=== PATIENT | male | born 1995 | race Caucasian/White ===

== ENCOUNTER 2020-06-26 07:48 | Emergency (ER) | payer OTHER ==
[2020-06-26] MEDS ORDERED: predniSONE 20 MG TAB ONE (08:38)
[2020-06-26] MEDS ORDERED: ACETAMINOPHEN 500 MG TAB ONE (08:38)
--- NOTE | 2020-06-26 08:51 | RAD REPORT ---
EXAM DESCRIPTION: Adriana Single View06/26/2020 8:42 am CLINICAL HISTORY: Cough COMPARISON: none FINDINGS: The lungs appear clear of acute infiltrate. The heart is normal size IMPRESSION: No acute abnormalities displayed
[2020-06-26 09:38] LABS: SARS-COV-2 RT PCR NEGATIVE (NEGATIVE)
--- NOTE | 2020-06-26 09:41 | EDPHYS ---
Physician Documentation [facility] Name: Christopher Clay Age: 24 yrs Sex: Male : 1995 Arrival Date: 06/26/2020 Time: 07:54 Bed 5 Private MD: Marcos Rodríguez ED Physician Eusebio Jeffrey HPI: 06/26 08:05 This 24 yrs old Male presents to ER via Ambulatory with complaints of Cough, rn Congestion, Breathing Difficulty. 08:05 The patient or guardian reports cough. rn 08:07 Onset: The symptoms/episode began/occurred 3 day(s) ago. Severity of symptoms: At their rn worst the symptoms were mild, in the emergency department the symptoms are unchanged. Modifying factors: The symptoms are alleviated by nothing, the symptoms are aggravated by nothing. The patient has experienced similar episodes in the past. The patient has not recently seen a physician. Reports cough, congestion, fatigue, sob for 3 days, no fever at home, reports in contact with someone who tested + for influenza and neg for COVID. No vomiting/diarrhea. + mild sob with exertion. . Historical: - Allergies: 08:05 CEPHALOSPORINS; hb 08:05 PENICILLINS; hb - Home Meds: 08:05 sertraline oral oral [Active]; hb - PMHx: 08:05 Anxiety; Asthma; Depression; disociative identity disorder; hb - PSHx: 08:05 None; hb - Immunization history:: Adult Immunizations up to date. - Social history:: Smoking status: Patient reports the use of cigarette tobacco products, smokes one pack cigarettes per day. - Family history:: not pertinent. - Hospitalizations: : No recent hospitalization is reported. ROS: 08:07 Constitutional: Negative for fever, and weight loss, Eyes: Negative for injury, pain, rn redness, and discharge, ENT: + congestion Neck: Negative for injury, pain, and swelling, Cardiovascular: Negative for chest pain, palpitations, and edema, Respiratory: + cough and sob Abdomen/GI: Negative for abdominal pain, nausea, vomiting, diarrhea, and constipation, Back: Negative for injury and pain, : Negative for injury, bleeding, discharge, and swelling, MS/Extremity: Negative for injury and deformity, Skin: Negative for injury, rash, and discoloration, Neuro: Negative for numbness, tingling, and seizure. Exam: 08:07 Constitutional: This is a well developed, well nourished patient who is awake, alert, rn and in no acute distress. Ambulatory to room without difficulty or assistance. Head/Face: Normocephalic, atraumatic. Eyes: Pupils equal round and reactive to light, extra-ocular motions intact. Lids and lashes normal. Conjunctiva and sclera are non-icteric and not injected. Cornea within normal limits. Periorbital areas with no swelling, redness, or edema. ENT: No stridor Cardiovascular: Tacycardic, regular Respiratory: No increased work of breathing, no retractions or nasal flaring. Skin: Warm, dry MS/ Extremity: Pulses equal, no cyanosis. Neuro: Awake and alert, GCS 15 Vital Signs: 08:02 BP 133 / 87; Pulse 113; Resp 16; Temp 99(TE); Pulse Ox 95% on R/A; Weight 113.4 kg; hb Height 5 ft. 9 in. (175.26 cm); Pain 3/10; 09:26 BP 115 / 82; Pulse 88; Resp 18; Pulse Ox 95% on R/A; ph 08:02 Body Mass Index 36.92 (113.40 kg, 175.26 cm) hb MDM: 07:57 Patient medically screened. rn 08:56 Test interpretation: by ED physician or midlevel provider: plain radiologic studies, rn CXR neg for acute abnormality, neg for pneumonia. 09:40 Differential Diagnosis: Influenza Upper Respiratory Infection Viral Syndrome Pneumonia. rn Data reviewed: vital signs, nurses notes, lab test result(s), radiologic studies, plain films, and as a result, I will discharge patient. Counseling: I had a detailed discussion with the patient and/or guardian regarding: the historical points, exam findings, and any diagnostic results supporting the discharge/admit diagnosis, lab results, radiology results, the need for outpatient follow up, to return to the emergency department if symptoms worsen or persist or if there are any questions or concerns that arise at home. Special discussion: I discussed with the patient/guardian in detail that at this point there is no indication for admission to the hospital. It is understood, however, that if the symptoms persist or worsen the patient needs to return immediately for re-evaluation. 06/26 08:06 Order name: XRAY Chest (1 view); Complete Time: 08:55 rn 06/26 09:38 Order name: COVID-19/FLU A+B; Complete Time: 09:40 EDMS Administered Medications: 09:00 Drug: predniSONE 40 mg Route: PO; ph 09:26 Follow up: Response: No adverse reaction ph 09:00 Drug: Tylenol 1000 mg Route: PO; ph 09:26 Follow up: Response: No adverse reaction ph Disposition: 06/26/20 09:40 Discharged to Home. Impression: Asthma, Acute upper respiratory infection, unspecified. - Condition is Stable. - Discharge Instructions: Upper Respiratory Infection, Adult, Viral Respiratory Infection. - Prescriptions for Prednisone 20 mg Oral Tablet - take 3 tablet by ORAL route once daily for 5 days; 15 tablet. Albuterol Sulfate 90 mcg/actuation - inhale 1-2 puff by INHALATION route every 4-6 hours; 1 Inhaler. - Medication Reconciliation Form, Thank You Letter, Antibiotic Education, Prescription Opioid Use, Work release form form. - Follow up: Private Physician; When: As needed; Reason: Recheck today's complaints, Re-evaluation by your physician. - Problem is new. - Symptoms have improved. Signatures: Dispatcher [employer] EDND Eusebio Jeffrey MD MD rn Hall, Patricia, RN RN ph Baxter, Heather, RN RN Corrections: (The following items were deleted from the chart) 08:56 08:07 CORONAVIRUS+MR.LAB.BRZ ordered. [facility] EDMS 08:57 08:07 Influenza Screen (A \T\ B)+BA.LAB.BRZ ordered. [facility] EDND 09:51 09:40 06/26/2020 09:40 Discharged to Home. Impression: Asthma; Acute upper respiratory ph infection, unspecified. Condition is Stable. Discharge Instructions: Upper Respiratory Infection, Adult, Viral Respiratory Infection. Prescriptions for Prednisone 20 mg Oral Tablet - take 3 tablet by ORAL route once daily for 5 days; 15 tablet, Albuterol Sulfate 90 mcg/actuation - inhale 1-2 puff by INHALATION route every 4-6 hours; 1 Inhaler. and Forms are Medication Reconciliation Form, Thank You Letter, Antibiotic Education, Prescription Opioid Use. Follow up: Private Physician; When: As needed; Reason: Recheck today's complaints, Re-evaluation by your physician. Problem is new. Symptoms have improved. rn
--- NOTE | 2020-06-26 09:41 | ER ---
Nurse's Notes [facility] Name: Christopher Clay Age: 24 yrs Sex: Male : 1995 Arrival Date: 06/26/2020 Time: 07:54 Bed 5 Private MD: Marcos Rodríguez Diagnosis: Asthma;Acute upper respiratory infection, unspecified Presentation: 06/26 08:02 Chief complaint: Cough, congestion, headache, headache, and SOB x 4 days. Coronavirus hb screen: Client presents with at least one sign or symptom that may indicate coronavirus-19. Standard/surgical mask placed on the client. Provider contacted for isolation considerations. Ebola Screen: No symptoms or risks identified at this time. Initial Sepsis Screen: Does the patient meet any 2 criteria? No. Patient's initial sepsis screen is negative. Does the patient have a suspected source of infection? No. Patient's initial sepsis screen is negative. Risk Assessment: Do you want to hurt yourself or someone else? Patient reports no desire to harm self or others. Onset of symptoms was June 22, 2020. 08:02 Method Of Arrival: Ambulatory hb 08:02 Acuity: MICHELLE 3 hb Historical: - Allergies: 08:05 CEPHALOSPORINS; hb 08:05 PENICILLINS; hb - Home Meds: 08:05 sertraline oral oral [Active]; hb - PMHx: 08:05 Anxiety; Asthma; Depression; disociative identity disorder; hb - PSHx: 08:05 None; hb - Immunization history:: Adult Immunizations up to date. - Social history:: Smoking status: Patient reports the use of cigarette tobacco products, smokes one pack cigarettes per day. - Family history:: not pertinent. - Hospitalizations: : No recent hospitalization is reported. Screenin:30 Abuse screen: Denies threats or abuse. Denies injuries from another. Nutritional ph screening: No deficits noted. Tuberculosis screening: No symptoms or risk factors identified. Fall Risk None identified. Assessment: 08:29 General: Appears in no apparent distress. comfortable, well groomed, Behavior is calm, ph cooperative, appropriate for age, Denies fever. Pain: Complains of pain in head. Neuro: Level of Consciousness is awake, alert, obeys commands, Oriented to person, place, time, situation. Neuro: Reports headache. Cardiovascular: Capillary refill < 3 seconds in bilateral fingers Patient's skin is warm and dry. Respiratory: Reports shortness of breath at rest cough that is Airway is patent Respiratory effort is even, unlabored, Respiratory pattern is regular, symmetrical. GI: No signs and/or symptoms were reported involving the gastrointestinal system. Derm: Skin is intact, Skin is pink, warm \T\ dry. Musculoskeletal: Circulation, motion, and sensation intact. Range of motion: intact in all extremities. 09:26 Reassessment: Patient appears in no apparent distress at this time. Patient and/or ph family updated on plan of care and expected duration. Pain level reassessed. Patient is alert/active/playful, equal unlabored respirations, skin warm/dry/pink. Vital Signs: 08:02 BP 133 / 87; Pulse 113; Resp 16; Temp 99(TE); Pulse Ox 95% on R/A; Weight 113.4 kg; hb Height 5 ft. 9 in. (175.26 cm); Pain 3/10; 09:26 BP 115 / 82; Pulse 88; Resp 18; Pulse Ox 95% on R/A; ph 08:02 Body Mass Index 36.92 (113.40 kg, 175.26 cm) hb ED Course: 07:54 Patient arrived in ED. mr 07:55 Marcos Rodríguez MD is Private Physician. mr 07:57 Eusebio Jeffrey MD is Attending Physician. rn 08:04 Triage completed. hb 08:05 Arm band placed on. hb 08:13 Lori Abdul RN is Primary Nurse. ph 08:30 Patient has correct armband on for positive identification. Bed in low position. Call ph light in reach. Side rails up X 1. Pulse ox on. NIBP on. Door closed. Noise minimized. 08:42 XRAY Chest (1 view) In Process Unspecified. EDMS 09:51 No provider procedures requiring assistance completed. Patient did not have IV access ph during this emergency room visit. Administered Medications: 09:00 Drug: predniSONE 40 mg Route: PO; ph 09:26 Follow up: Response: No adverse reaction ph 09:00 Drug: Tylenol 1000 mg Route: PO; ph 09:26 Follow up: Response: No adverse reaction ph Outcome: 09:40 Discharge ordered by . rn 09:51 Discharged to home ambulatory. ph 09:51 Condition: good 09:51 Discharge instructions given to patient, Instructed on discharge instructions, follow up and referral plans. medication usage, Demonstrated understanding of instructions, follow-up care, medications, Prescriptions given X 2. 09:51 Patient left the ED. ph Signatures: Dispatcher [employer] EDNE DenzelPhuong WojciechEusebio MD MD rn Hall, Patricia, RN RN Orquidea Brito RN RN
[2020-06-26 09:57] VITALS: TEMP 99; O2SAT 95
[2020-06-26 09:58] VITALS: BP 115/82
== END 2020-06-26 09:51 | disposition home or self-care (01) ==
LOC: ER 07:48
DX: J06.9 Acute upper respiratory infection, unspecified (principal); J45.909 Unspecified asthma, uncomplicated; F17.210 Nicotine dependence, cigarettes, uncomplicated; Z20.822 Contact with and (suspected) exposure to COVID-19; Z88.0 Allergy status to penicillin; Z88.3 Allergy status to other anti-infective agents
CPT/HCPCS: 0240U; 71045; 99284; J7512